=== PATIENT | female | born 1945 | race Caucasian/White ===

== ENCOUNTER 2018-05-24 12:01 | Outpatient (CLI) | payer MEDICARE, MEDICAID ==
--- NOTE | 2018-05-24 15:42 | ULT ---
TRANSABDOMINAL AND TRANSVAGINAL PELVIC ULTRASOUND: INDICATIONS: Unknown pelvic mass seen by CT. COMPARISON: CT abdomen dated 04/05/[address] abdomen and pelvis dated 01/30/2017. FINDINGS: The uterus measures 6.8 x 3.8 x 4.2 cm. There is a mixed echogenicity mass seen centered within the central aspect of the uterus, in the region of the endometrial canal. This is not well seen on the t ransabdominal examination. The endometrial stripe proximal to that area measures approximately 7 mm. The right ovary is not well seen. There is a large, complex, cystic mass in the region of the right adnexa, measuring 8.8 x 5.5 x 14 cm. The full extent of the lesion is slightly difficult to evaluate due to its size. At the left ovary, there is a complex, cystic lesion involving the left adnexa, me asuring 10.3 x 6.7 x 7.7 cm. IMPRESSION: 1. Large, bilateral, complex, cystic masses involving the adnexa, suspicious for malignancy. Other differential considerations would include a tuboovarian abscess or endometriomas; however, these are felt to be less likely. Due to the size of the lesions and difficulty imaging this patient, further evaluation with MRI of the pelvis with and without contrast is recommended for further characterizati on. 2. Large heterogeneous mass seen within the central aspect of the uterine body, in the region of the endometrial canal, which may reflect a fibroid; however, an endometrial mass, related to either hype rplasia, polyposis, or carcinoma, is not excluded. MRI of the pelvis is recommended for further eval uation. 3. Mild free fluid in the pelvis. CODE POS: STEVE
== END 2018-05-24 12:02 | disposition home or self-care (01) ==
LOC: NAV ULT 12:01
PROVIDERS: ATTEND Internal Medicine Hospice and Palliative Medicine
DX: R19.00 Intra-abdominal and pelvic swelling, mass and lump, unspecified site (principal); R19.09 Other intra-abdominal and pelvic swelling, mass and lump; R93.8 Abnormal findings on diagnostic imaging of other specified body structures
CPT/HCPCS: 76856

== ENCOUNTER 2018-07-19 17:56 | Emergency (ER) | payer MEDICARE, MEDICAID ==
[~2018-07-19 17:56] MED LIST: Iopamidol 370 76% 100 ML VIAL ONE
[2018-07-19] MEDS ORDERED: Mag-Al Plus 1200 MG/1200 MG/120 MG/30 ML UDCUP ONE (18:30)
[2018-07-19] MEDS ORDERED: Pantoprazole 40 MG VIAL ONE (18:31)
[2018-07-19 18:57] LABS: CKMB 0.7 ng/mL (0-6.6); Troponin I Less than 0.010 ng/mL (< 0.028)
[2018-07-19 19:10] LABS: ALT (SGPT) 8 U/L (8-55); AST (SGOT) 21 U/L (5-34); Albumin 3.5 g/dL (3.4-4.8); Alkaline Phosphatase 54 U/L (40-150); Anion Gap 16 mmol/L (10-20); BUN (Urea Nitrogen) 11 mg/dL (9.8-20.1); Bilirubin, Total 0.6 mg/dL (0.2-1.2); CK (CPK) 55 U/L (29-168); Calc. Creatinine Clearance 0 mL/min (70-130); Calcium 9.3 mg/dL (7.8-10.44); Carbon Dioxide 24 mmol/L (23-31); Chloride 100 mmol/L (98-107); Estimated GFR-MDRD 80; Globulin 3.5 g/dL (2.4-3.5); Glucose 163 mg/dL (80-115); Lipase 14 U/L (8-78); Sodium 137 mmol/L (136-145)
[2018-07-19 19:23] LABS: #Basophils 0.1 thou/uL (0.0-0.2); #Lymphocytes 0.9 thou/uL (1.20-3.40); #Monocytes 0.4 thou/uL (0.11-0.59); #Neutrophils 7.3 thou/uL (1.40-6.50); %Basophils 0.7 % (0.0-1.0); %Monocytes 4.6 % (0.0-10.0); %Neutrophils 84.7 % (42.0-75.0); Hemoglobin 12.7 g/dL (12.0-16.0); Mean Corpuscular HGB CONC 31.3 g/dL (32.0-36.0); Mean Corpuscular Hemoglobin 24.4 pg (27.0-31.0); Platelet Count 471 thou/uL (130-400); RBC Distribution Width 14.9 % (11.5-14.5); White Blood Cell (WBC) Count 8.6 thou/uL (4.8-10.8)
[2018-07-19 19:26] LABS: Potassium 2.9 mmol/L (3.5-5.1)
[2018-07-19] MEDS ORDERED: Ondansetron HCl/PF 4 MG/2 ML Vial ONE (19:36)
[2018-07-19 19:52] LABS: Bilirubin Small (Negative); Blood, Urine Negative (Negative); Clarity Clear (Clear); Glucose, Urine (Dipstick) Negative (Negative); Leukocyte Negative (Negative); Nitrite Negative (Negative); Protein, Urine (Dipstick) 100 mg/dL (Neg-Trace)
[2018-07-19 19:53] LABS: Bacteria/HPF Rare-Few HPF (None Seen); RBC/HPF None Seen HPF (0-3); Squamous Epithelial 0-3 HPF (0-3); WBC/HPF 0-3 HPF (0-3)
[2018-07-19] MEDS ORDERED: Potassium Chloride 20 MEQ TAB ONE (20:21)
--- NOTE | 2018-07-19 21:27 | RAD ---
PORTABLE AP CHEST X-RAY 07/19/18 HISTORY: Dyspnea, epigastric pain. COMPARISON: 09/07/07. FINDINGS: There are pleural and parenchymal changes left lung base likely related to small to moderate sized le ft pleural effusion and atelectasis. Right lung is clear. Pleural and parenchymal changes right lung base has resolved from the prior study. Left subclavian central venous catheter is also no longer vis ualized. The cardiac silhouette is partially obscured but does appear to be within normal limits. Vas cular calcifications seen in the thoracic aorta. Pulmonary vasculature is within normal limits. Calci fied granuloma right upper lung zone is again seen. IMPRESSION: Small to moderate sized left pleural effusion and atelectasis. POS: H
--- NOTE | 2018-07-19 23:32 | CT ---
CT ABDOMEN AND PELVIS WITH CONTRAST: 07/19/18 COMPARISON: 01/30/17, 04/05/18. HISTORY: Epigastric pain starting today and left sided abdominal pain. The patient has been vomiting bilious e mesis. TECHNIQUE: Multiple contiguous axial images were obtained in a CT of the abdomen and pelvis with contrast. PO co ntrast was administered. Coronal reformats were performed. FINDINGS: There is stable enlargement of the left lobe of the liver. No focal liver lesions are seen. The gallb ladder is not seen and may have been removed. No biliary dilatation is seen. Calcifications in the sp johnson are likely from prior granulomatous disease. Calcifications are seen in the body of the pancreas which are stable. These could essentially represent vascular calcifications. The kidneys and adrenal glands are unremarkable. There is a small amount of ascites. There appears to be thickening of the mesentery which likely repr esents omental caking. There is a mixed hyperdense and hypodense lesion in the right adnexal region. This appears to have enlarged compared to the prior examination and now measures approximately 12.4 c m in greatest dimension. This likely is an ovarian tumor and given the ascites and omental caking is likely an ovarian malignancy. There are scattered diverticula in the colon. The small bowel is normal in caliber without significan t distention. No pelvic lymphadenopathy is seen. The uterus is slightly heterogeneous in appearance. Atherosclerotic calcifications are seen in the aorta. No abdominal adenopathy is seen. There is a sma ll soft tissue density nodule containing a central calcification just to the left of the aorta measur ing 1.8 cm in size. This is stable compared to the prior examination. There is a small left pleural effusion. Adjacent atelectasis is seen. Degenerative changes are seen i n the spine. IMPRESSION: 1. There has been interval development of ascites and apparent worsening of the right adnexal ma ss and omental caking. 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 2. Enlargement of the left hepatic lobe with likely a slightly nodular contour suggests cirrhosi s. POS: C
== END 2018-07-19 22:44 | disposition home or self-care (01) ==
LOC: NAV ERS 17:56
DX: K29.00 Acute gastritis without bleeding (principal); N83.9 Noninflammatory disorder of ovary, fallopian tube and broad ligament, unspecified; F32.9 Major depressive disorder, single episode, unspecified; E78.5 Hyperlipidemia, unspecified; F17.210 Nicotine dependence, cigarettes, uncomplicated; I10 Essential (primary) hypertension; K74.60 Unspecified cirrhosis of liver; J44.9 Chronic obstructive pulmonary disease, unspecified; Z79.51 Long term (current) use of inhaled steroids; Z79.899 Other long term (current) drug therapy; Z85.05 Personal history of malignant neoplasm of liver
CPT/HCPCS: 71046; 74177; 80053; 81003; 81015; 82140; 82553; 83690; 84484; 85025; 93005; 96374; 96375; C9113; J2270; J2405

== ENCOUNTER 2019-01-01 09:45 | Outpatient (CLI) | payer MEDICARE, MEDICAID ==
--- NOTE | 2019-01-01 15:12 | CT ---
CT ABDOMEN AND PELVIS WITH CONTRAST: HISTORY: Ovarian cancer. Liver cancer. Chemotherapy. COMPARISON: CT abdomen and pelvis 07/19/2018. FINDINGS: Moderate emphysematous changes in lung bases. There are 3 discrete nodules in the left lung base, ea ch measuring 5-6 mm seen on coronal image 122. The hepatic contour is nodular. There is similar mas s in the right lobe of the liver with peripheral capsular retraction that is similar. There is a large ventral hernia containing small bowel and mesentery. There is diastasis recti. The re is a new fluid collection extending from the left adnexa measuring 8.3 x 7 x 9.1 cm. The solid co mponent of the right adnexal mass is similar. Solid component to the left adnexal mass is similar. The free fluid in the pelvis has improved. Overall, the omental caking and peritoneal studding has s lightly improved. Advanced degenerative changes of the lumbar spine. Periaortic adenopathy is similar and has not incr eased in size. IMPRESSION: 1. Interval slight improvement of omental peritoneal spread of disease with improved decreased ascit es. 2. Three solid nodules in the left lung base but in the pleura. These could be focal areas of infec tion, although close attenuation on followup imaging is recommended to exclude metastatic disease. 3. Similar appearance of the capsular retraction hypodensity of the right lobe of the liver. POS: TPC
== END 2019-01-01 09:46 | disposition home or self-care (01) ==
LOC: NAV CT 09:45
PROVIDERS: ATTEND Internal Medicine Hematology & Oncology
DX: C56.1 Malignant neoplasm of right ovary (principal); C22.7 Other specified carcinomas of liver; R91.8 Other nonspecific abnormal finding of lung field
CPT/HCPCS: 74177

== ENCOUNTER 2019-03-28 17:00 | Emergency (ER) | payer MEDICARE, MEDICAID ==
[2019-03-28] MEDS ORDERED: Albuterol Sulfate 2.5 mg/0.5 ml Neb ONE (17:33)
[2019-03-28] MEDS ORDERED: Sodium Chloride For Inhalation 0.9% 3 ML NEB ONE (17:36)
[2019-03-28] MEDS ORDERED: methylPREDNISolone Sod Succ/PF 125 MG/2 ML VIAL ONE (18:03)
[2019-03-28 18:10] LABS: #Lymphocytes 1.1 thou/uL (1.20-3.40); #Monocytes 0.3 thou/uL (0.11-0.59); #Neutrophils 12.3 thou/uL (1.40-6.50); %Basophils 0.2 % (0.0-1.0); %Monocytes 2.2 % (0.0-10.0); %Neutrophils 89.6 % (42.0-75.0); Hemoglobin 13.2 g/dL (12.0-16.0); Mean Corpuscular HGB CONC 31.2 g/dL (32.0-36.0); Mean Corpuscular Hemoglobin 28.2 pg (27.0-31.0); Mean Corpuscular Volume 90.5 fL (78.0-98.0); Mean Platelet Volume 6.8 fL (7.4-10.4); Platelet Count 241 thou/uL (130-400); Red Blood Cell (RBC) Count 4.66 mill/uL (4.20-5.40); White Blood Cell (WBC) Count 13.7 thou/uL (4.8-10.8)
[2019-03-28 18:29] LABS: ALT (SGPT) 16 U/L (8-55); AST (SGOT) 24 U/L (5-34); Albumin 3.9 g/dL (3.4-4.8); Alkaline Phosphatase 100 U/L (40-150); Anion Gap 19 mmol/L (10-20); BUN (Urea Nitrogen) 14 mg/dL (9.8-20.1); Bilirubin, Total 0.5 mg/dL (0.2-1.2); CK (CPK) 54 U/L (29-168); Calc. Creatinine Clearance 0 mL/min (70-130); Calcium 9.3 mg/dL (7.8-10.44); Carbon Dioxide 22 mmol/L (23-31); Chloride 103 mmol/L (98-107); Estimated GFR-MDRD 76; Globulin 3.4 g/dL (2.4-3.5); Glucose 113 mg/dL (83-110); Potassium 3.5 mmol/L (3.5-5.1); Protein, Total 7.3 g/dL (6.0-8.3); Sodium 140 mmol/L (136-145)
--- NOTE | 2019-03-28 18:56 | RAD ---
PORTABLE CHEST 03/28/19 PROVIDED CLINICAL HISTORY: Dyspnea. FINDINGS: Comparison 07/19/18. The cardiac silhouette appears unchanged in size. Vascular calcification involves the aortic arch. Th e left lung base is suboptimally evaluated. Given this limitation, no focal consolidation, pleural f luid or pneumothorax apparent. IMPRESSION: Cardiomegaly and atherosclerosis without definite evidence for an acute cardiopulmonary process. If t here is persistent clinical concern, follow-up PA and lateral views of the chest are recommended. POS: CARLY
[2019-03-28] MEDS ORDERED: Albuterol Sulfate 2.5 mg/3 ml Neb ONE (19:28)
--- NOTE | 2019-03-28 21:04 | CT ---
CT ANGIOGRAM CHEST 03/28/19 COMPARISON: None. HISTORY: Dyspnea. TECHNIQUE: Axial CT imaging at 2.5 mm intervals from thoracic inlet through upper abdomen with IV contrast using CT angiogram protocol. Coronal and oblique sagittal 3D reformatted imaging obtained. FINDINGS: No axillary, hilar, or mediastinal lymphadenopathy is noted. Subcentimeter nodes are seen within the AP window and subcarinal region. Limited assessment of the upper abdomen appears stable when compared to CT examination performed 01/01. There is a scalloped irregular appearance of the posterior aspect of the right lobe of the liver, a s table finding. Motion artifact and timing of the contrast bolus limits detailed assessment of the distal pulmonary a rterial vasculature. No central filling defect is seen to suggest the presence of a central pulmonary arterial embolism. There is scattered atherosclerotic calcification of the aortic arch and descendin g thoracic aorta. There is extensive coronary arterial calcification. There is no pneumothorax seen. There is extensive central lobular emphysematous change bilaterally. There is multifocal reticulonodular opacity within the left lower lobe inferiorly/posteriorly, and to a lesser degree, within the lingula. There is an azygos lobe and fissure present. Review of the osseous structures demonstrates no worrisome lytic or blastic bone lesions. There is multilevel degenerative change within the thoracic spine with multilevel disc space narrowin g and osteophyte formation and end plate sclerotic change. IMPRESSION: 1. No CT angiographic evidence of a central pulmonary arterial embolism. Motion artifact and seymour ing of the contrast bolus limits detailed assessment for distal PE. 2. Focal area of reticulonodular density within the left lower lobe and to a lesser degree, the lingula. Inflammatory/infectious pneumonitis is favored. Short term follow-up imaging following giselle atment is advised to document resolution in 4-6 weeks. 3. Emphysematous change. 4. Extensive atherosclerotic disease involving coronary arteries and thoracic aorta. Code T POS: OFF
[2019-03-28] MEDS ORDERED: Azithromycin 250 MG TAB ONE (21:05)
== END 2019-03-28 21:18 | disposition home or self-care (01) ==
LOC: NAV ERS 17:00
DX: J44.0 Chronic obstructive pulmonary disease with (acute) lower respiratory infection (principal); J22 Unspecified acute lower respiratory infection; E78.5 Hyperlipidemia, unspecified; F32.9 Major depressive disorder, single episode, unspecified; F17.210 Nicotine dependence, cigarettes, uncomplicated; I10 Essential (primary) hypertension; Z79.899 Other long term (current) drug therapy; K74.60 Unspecified cirrhosis of liver
CPT/HCPCS: 71045; 71275; 80053; 82550; 83880; 84484; 85025; 85379; 87040; 87804; 93005; 94640; 96374; J2930; J7611; Q9967

== ENCOUNTER 2019-05-01 08:49 | Outpatient (CLI) | payer MEDICARE, MEDICAID ==
[2019-05-01] MEDS ORDERED: Iopamidol 370 76% 100 ML VIAL ONE (09:00)
--- NOTE | 2019-05-01 10:54 | CT ---
CT CHEST WITH CONTRAST: CT ABDOMEN WITH CONTRAST: CT PELVIS WITH CONTRAST: HISTORY: Ovarian cancer and liver cancer. Malignant neoplasm of the right ovary. Carcinoma of the liver. COMPARISON: CT angiogram of the chest from 03/28/2019. CT abdomen and pelvis from 01/01/2019. CORRELATION: None. FINDINGS: CHEST: Mediastinum: No mass, lymphadenopathy or hematoma. Aorta: Atherosclerosis. No aneurysm or dissection. Heart: Normal size. There are coronary artery calcifications. Trachea and central bronchi: Patent. PLEURAL SPACES: Clear Right lung: Stable emphysematous changes. Stable calcified granuloma. Stable scar/atelectasis in t he right lower lobe. Left lung: Stable emphysematous changes. Pneumothorax: None. ABDOMEN: Gallbladder: Contracted. Portal vein: Patent. Liver: Enhancing lesions along the periphery of the left and right hepatic lobe, measuring 0.8 x 0.9 and 0.7 x 0.7 cm, respectively. There is a hypodense mass with partial peripheral enhancement in the posterior segment of the right hepatic lobe, measuring 3.3 x 4.9 cm. Spleen: Appropriate enhancement. Pancreas: Appropriate enhancement. Adrenal glands: Appropriate enhancement. Lymphadenopathy: No gastrohepatic, retrocrural, or periportal lymphadenopathy. Kidneys: Symmetric enhancement. No obstructive uropathy. Mesentery: No mass, lymphadenopathy, free air, or free fluid. Previously noted omental seeding is l ess evident on the current examination. There is stranding of the abdominal mesentery at the level of a ventral abdominal wall hernia. Stranding is presumed to represent chronic changes of the mesent radha. Previously noted nodularity has significantly improved. Alimentary canal: No evidence of bowel obstruction. The ileocecal junction is normal. Normal calibe r appendix. There is enhancement of the sigmoid colon, which may represent infectious or inflammatory process. PELVIS: Surgically absent uterus. No pelvic mass, lymphadenopathy, free air, or free fluid. Complex solid a nd cystic masses in the left and right adnexa are no longer evident. Unremarkable urinary bladder. Osseous structures: No lytic or blastic lesions. IMPRESSION: 1. Stable emphysematous changes in the lung parenchyma. Previously noted opacities in the lung base s have significantly resolved. 2. Interval development of multifocal hepatic masses, suggesting hepatic malignancy. Progression of a hypodense mass in the posterior segment of the right hepatic lobe. Mass was less evident on the CT from December 2017. Retrospectively, it probably measured 2.9 x 2.9 cm. There has been slight in crease since the CT angiogram of the chest from March 2019. At that time this mass measured 2.8 x 4.9 cm. 3. The degree of omental seeding has decreased when compared to the previous examination. 4. Interval absence of complex masses in the left and right adnexa. 5. Stable ventral abdominal wall hernia, containing mesentery and small bowel loops. No bowel incar ceration. Transcribed Date/Time: 05/01/2019 11:26 AM
== END 2019-05-01 08:50 | disposition home or self-care (01) ==
LOC: NAV CT 08:49
PROVIDERS: ATTEND Internal Medicine Hematology & Oncology
DX: C56.1 Malignant neoplasm of right ovary (principal); C22.7 Other specified carcinomas of liver; R16.0 Hepatomegaly, not elsewhere classified; K43.9 Ventral hernia without obstruction or gangrene; N85.8 Other specified noninflammatory disorders of uterus
CPT/HCPCS: 71260; 74177; Q9967

== ENCOUNTER 2019-06-19 08:39 | Outpatient (CLI) | payer MEDICARE, MEDICAID ==
[2019-06-19] MEDS ORDERED: Iopamidol 370 76% 100 ML VIAL ONE (09:00)
--- NOTE | 2019-06-19 10:29 | CT ---
ABDOMEN AND PELVIC CT SCAN WITH IV CONTRAST: Date: 06/19/19 HISTORY: Ovarian cancer with liver metastasis. COMPARISON: 05/01/19 and 01/01/19. FINDINGS: Stable minimal pleural based parenchymal change in the right lower lobe. There is a stable approximat vee 3 x 5 cm diameter poorly circumscribed low attenuation mass in the posterior right lobe of the li lorna. Several poorly defined small areas of increased attenuation density seen primarily in the right lobe peripherally are less well defined than on the prior study and difficult to measure. As far as s ize change is concerned, they certainly do not appear to be larger than from the prior study. The pre viously noted omental disease is no longer evident, with little change from 04/21/19, but marked impr ovement from the 01/01/19 study. No evidence for ascites. IMPRESSION: Multifocal areas of altered attenuation within the liver, including some hyperdense foci which are le ss well defined and probably slightly smaller than on the prior study. Stable poorly defined low dens ity focus in the posterior right lobe of the liver. No evidence for new metastasis. No evidence for a scites. POS: TPC
== END 2019-06-19 08:40 | disposition home or self-care (01) ==
LOC: NAV CT 08:39
PROVIDERS: ATTEND Internal Medicine Hematology & Oncology
DX: Z01.818 Encounter for other preprocedural examination (principal); C56.1 Malignant neoplasm of right ovary; C78.7 Secondary malignant neoplasm of liver and intrahepatic bile duct
CPT/HCPCS: 74177; 82565; Q9967